=== PATIENT | male | born 1970 | race African-American/Black ===

== ENCOUNTER 2016-12-18 21:01 | Emergency (ER) | payer MEDICAID ==
[2016-12-18 21:11] VITALS: O2SAT 96
--- NOTE | 2016-12-18 21:20 | EDPHY ---
H & P Stated Complaint: Sudden onset groain pain Time Seen by Provider: 12/18/16 21:19 - Personal History Current Tetanus/Diphtheria Vaccine: Unsure Current Tetanus Diphtheria and Acellular Pertussis (TDAP): Unsure Tetanus Vaccine Date: 2005 - Medical/Surgical History Hx Asthma: No Hx Chronic Respiratory Disease: No Hx Diabetes: No Hx Cardiac Disease: No Hx Renal Disease: No Hx Cirrhosis: No Hx Alcoholism: No Hx HIV/AIDS: No Hx Splenectomy or Spleen Trauma: No Other PMH: L inguinal hernia.spiinal menigitis. - Social History Smoking Status: Former smoker Constitutional: Initial Vital Signs Temperature (C) 36.8 C 12/18/16 21:09 Heart Rate 89 12/18/16 21:09 Respiratory Rate 20 12/18/16 21:09 Blood Pressure 151/96 H 12/18/16 21:09 O2 Sat (%) 96 12/18/16 21:09 O2 Delivery Mode Room Air Allergies/Adverse Reactions: No Known Allergies Allergy (Verified 12/18/16 21:09) Home Medications: Medication Instructions Recorded Acetaminophen [Tylenol 325mg (*)] 650 mg PO Q4HRS PRN #0 tab 05/20/16 Cephalexin [Keflex (*)] 500 mg PO QID #40 cap 05/20/16 Doxycycline Hyclate 100 mg PO BID #20 capsule 05/20/16 Hydrocodone/APAP 5/325 [[place] 1 - 2 tab PO Q4 #11 tab 06/21/16 5/325 (RX)] Hydrocodone/APAP 5/325 [[place] 1 - 2 each PO Q4-6PRN PRN #20 tab 12/18/16 5/325] Ibuprofen [Motrin] 800 mg PO Q8 #20 tab 12/18/16 Medical Decision Making - Diagnostics Imaging Results: Imaging Impressions Testicular Ultrasound 12/18/16 21:29 Impression: 1. Normal sonographic appearance of each testis, with no mass or torsion. 2. Findings consistent with epididymitis involving each epididymal tail. 3. Stable appearance of a benign right scrotal mustapha, compared to 07/08/2016. 4. Tiny bilateral hydroceles. Findings were discussed with Horace Olguin MD at 22:19, on 12/18/2016. Imaging: Discussed imaging studies w/ call out operator Radiologist ED Course/Re-evaluation: CHIEF COMPLAINT: Testicular pain HISTORY OF PRESENT ILLNESS: The patient is a 46 y/o male complaining of acute onset left testicular pain one hour prior to arrival. The pain began abruptly as he was moving from one chair to another this evening. He describes his pain as sharp and 10/10 in severity continuously. His pain radiates to his LLQ and is associated with nausea and one episode of non-bloody vomiting. He tried Tylenol for pain without alleviation; however, he was able to relieve some pain by manually lifting his testicle towards his abdomen. No fever, chills, diarrhea , dysuria, urethral discharge. He notes one prior episode of similar symptoms 1 month ago. He denies preceding injury. REVIEW OF SYSTEMS: A 10 point review of systems was performed and is negative with the exception of the elements mentioned in the history of present illness. PHYSICAL EXAM: HR, BP, O2 Sat, RR. Temp noted General Appearance: Alert, well hydrated, appropriate, and non-toxic appearing. Head: Atraumatic without scalp tenderness or obvious injury Eyes: Pupils equal, round, reactive to light and accommodation, EOMI, no trauma , no injection. Nose: Atraumatic, no rhinorrhea, clear. Throat: mucus membranes moist. Neck: Supple Respiratory: No retractions, no distress, no wheezes, and no accessory muscle use. Lungs are clear to auscultation bilaterally. Cardiovascular: Regular rate and rhythm, no murmurs, rubs, or gallops. Good capillary refill all extremities. Gastrointestinal: Abdomen is soft, mild left-sided diffuse tenderness, non- distended, no masses, no rebound, no guarding, no peritoneal signs. : Mild tenderness to left testicle Musculoskeletal: Normal active ROM of all extremities, atraumatic. Neurological: Alert, appropriate, and interactive. Nonfocal neuro exam. Skin: No rashes, good turgor, no nodules on palpation. Past medical history: One prior episode of testicular pain 1 month ago. Unknown STD history. Past surgical history: Denies Family history: Noncontributory Social history: Homeless. Medicaid patient. Sexually active, unprotected sex. DIAGNOSTICS/PROCEDURES/CRITICAL CARE TIME: Testicular US: epididymitis DIFFERENTIAL DIAGNOSIS: The differential diagnosis for the patient's abdominal pain and testicular pain included but was not limited to appendicitis , cholecystitis, hernias, testicular torsion, gastritis, and urinary tract infection. MEDICAL DECISION MAKING: This is a 46 y/o male presenting with acute onset left testicular pain this evening. He has tenderness to his left testicle on exam. Concern for testicular torsion or epididymitis given recent unprotected sex. Plan for testicular US to further evaluate. US indicates epididymitis. The patient reports his pain is sometimes present in his right testicle, but not as severe. Plan for treatment here with 1gm IV Rocephin, 100mg PO Doxycycline, and 800mg PO ibuprofen. He will be discharged with script for Doxycycline and [place] scripts and ibuprofen instructions. Urology referral given. He agrees with plan. Strict return precautions given. [place] and ibuprofen Departure - Departure Disposition: Home, Routine, Self-Care Clinical Impression: Epididymitis Condition: Good Instructions: Doxycycline (By mouth), Hydrocodone/Acetaminophen (By mouth), Epididymitis (ED) Additional Instructions: 1. Take doxycycline as prescribed. Be sure to complete the entire prescription even if you feel better. 2. Take 800mg ibuprofen every 6-8 hours for pain and inflammation over the next few days. 3. Use [place] as prescribed if needed for pain not controlled by ibuprofen. 4. Follow up with urology tomorrow. 5. Return for any worsening of condition. Referrals: Toi Schmidt MD [Medical Doctor] - As per Instructions Prescriptions: Hydrocodone/APAP 5/325 [[place] 5/325] 1 - 2 each PO Q4-6PRN PRN #20 tab PRN Reason: Pain, Moderate Ibuprofen [Motrin] 800 mg PO Q8 #20 tab Report Scribed for: Horace Olguin Report Scribed by: Rohini Prather Date of Report: 12/18/16 Time of Report: 22:21
[2016-12-18] MEDS ORDERED: DOXYCYCLINE HYCLATE 100 MG CAP/TAB PO ONE (22:22)
[2016-12-18] MEDS ORDERED: IBUPROFEN 800 MG TAB PO ONE (22:22)
[2016-12-18] MEDS ORDERED: HYDROCOD/APAP 5/325 PREPACK#6 BTL TAKEHOME ONE (22:22)
[2016-12-18] MEDS ORDERED: CEFTRIAXONE IM 350 MG/ML SYRINGE IM ONE (22:22)
[2016-12-18] MEDS ORDERED: CEFTRIAXONE 1 GM/DEXTROSE/50 ML BAG IV ONE (22:26)
[2016-12-18] MEDS ORDERED: IBUPROFEN 200 MG TAB PO ONE (22:26)
[2016-12-18] MEDS: cefTRIAXone 1 GM in D5W 50 ML IV ONE ×2 (22:51→23:13)
[2016-12-18 23:42] VITALS: BP 139/66; PULSE 66; RESP 16; TEMP 98.1
== END 2016-12-18 23:45 | disposition home or self-care (01) ==
LOC: EDUNIT#
DX: N45.1 Epididymitis (principal); Z87.891 Personal history of nicotine dependence
CPT/HCPCS: J0696

== ENCOUNTER 2017-01-03 10:26 | Emergency (ER) | payer MEDICAID ==
[2017-01-03] MEDS ORDERED: LORazepam 1 MG TAB ONE ×2 (10:38)
--- NOTE | 2017-01-03 11:22 | EDPHY ---
H & P HPI/ROS: Chief complaint: Drug ingestion History of present illness: This is a 46-year-old male brought to the emergency department for evaluation of drug ingestion. Patient reports he took what he believes was ecstasy. However he is having abnormal reaction to a feeling very twitchy and anxious. He is concerned it was laced with another drug. He denies other associated signs or symptoms. Review of systems: A 10 point review of systems was obtained and other than described above was negative Smoking Status: Current every day smoker Physical Exam: General Appearance: Alert, nontoxic. Eyes: Pupils equal and round no pallor or injection. ENT, Mouth: Mucous membranes moist. Respiratory: There are no retractions, lungs are clear to auscultation. Cardiovascular: Regular rate and rhythm. Gastrointestinal: Abdomen is soft and non tender, no masses, bowel sounds normal. Neurological: Alert. Strength and sensation intact and symmetrical. Skin: Warm and dry, no rashes. Musculoskeletal: Neck is supple non tender. Extremities are symmetrical, full range of motion. Psychiatric: Appears very anxious. Constitutional: Initial Vital Signs Temperature (C) 37.3 C 01/03/17 10:31 Heart Rate 118 H 01/03/17 10:31 Respiratory Rate 16 01/03/17 10:31 Blood Pressure 141/84 H 01/03/17 10:31 O2 Sat (%) 94 01/03/17 10:31 O2 Delivery Mode Room Air O2 (L/minute) 2 Allergies/Adverse Reactions: No Known Allergies Allergy (Verified 12/18/16 21:09) Home Medications: Medication Instructions Recorded NK [No Known Home Meds] 01/03/17 MDM/Departure - [facility] ED Course/Re-evaluation: Patient seen under the supervision of my secondary supervising physician Dr. Gee Raza. Patient presents to the emergency department feeling twitchy and anxious after taking Ecstasy which he believed was laced with another drugs. Patient is nontoxic. He is given Ativan for symptomatic treatment and allowed to rest. On re-evaluation he is feeling well, ambulating around without difficulty. Patient is discharged home. Home care is discussed. Return precautions are given. - Depart Disposition: Home, Routine, Self-Care Clinical Impression: Polysubstance abuse Condition: Good Instructions: Polysubstance Abuse (ED) Additional Instructions: Follow-up with a primary care doctor for recheck Discontinue the use of illicit drugs If symptoms worsen or new symptoms develop return to the emergency room for recheck Referrals: Andree Sales, PAC [Primary Care Provider] - As per Instructions
[2017-01-03 13:05] VITALS: RESP 16
[2017-01-03 14:13] VITALS: BP 135/85; PULSE 80; TEMP 98.4; O2SAT 93
== END 2017-01-03 14:14 | disposition home or self-care (01) ==
LOC: EDUNIT#
DX: F19.10 Other psychoactive substance abuse, uncomplicated (principal); F17.200 Nicotine dependence, unspecified, uncomplicated

== ENCOUNTER 2017-03-05 10:46 | Emergency (ER) | payer MEDICAID ==
[2017-03-05 10:59] VITALS: TEMP 97.5
[2017-03-05] MEDS ORDERED: KETOROLAC 30 MG/1 ML SDV IVP ONE (11:33)
[2017-03-05] MEDS ORDERED: LORazepam 2 MG/ML INJ IVP ONE (11:33)
--- NOTE | 2017-03-05 11:35 | EDPHY ---
H & P Stated Complaint: ? hernia /l abd pain/increased pain today Time Seen by Provider: 03/05/17 11:21 HPI/ROS: CHIEF COMPLAINT: Left lower quadrant and left testicle pain HISTORY OF PRESENT ILLNESS: 46-year-old male history of polysubstance abuse, IV drug use, complaining of acute onset left testicle pain and left lower quadrant abdominal pain both reproducible with palpation for the past 1 hour. Atraumatic. No antecedent symptoms. No nausea or vomiting. No urinary abnormality. No urethral discharge. REVIEW OF SYSTEMS: A ten point review of systems was performed and is negative with the exception of the items mentioned in the HPI PAST MEDICAL & SURGICAL HISTORY: No pertinent medical or surgical history SOCIAL HISTORY: IV drug use history PHYSICAL EXAM (Prior to examination, patient consented to physical exam, hands were washed and my usual and customary physical exam procedures followed) 1) GENERAL: Well-developed, well-nourished, alert and oriented. He is screaming and crying. 2) HEAD: Normocephalic, atraumatic 3) HEENT: Pupils equal, round, reactive to light bilaterally. Sclera anicteric. 4) NECK: Full range of motion, no meningeal signs. 5) LUNGS: Clear auscultation bilaterally, no wheezes, no rhonchi, no retractions. 6) HEART: Regular rate and rhythm, no murmur, no heave, no gallop. 7) ABDOMEN: guarding left lower quadrant and left testicle, tender palpation left lower quadrant. No palpable mass, no hernia no rebound, no focal tenderness, negative McBurney's, negative More's, negative Rovsing's, negative peritoneal sign, 8) MUSCULOSKELETAL: Moving all extremities, no focal areas of tenderness, no obvious trauma. No peripheral edema or discoloration. 9) BACK: No CVA tenderness, no midline vertebral tenderness, no fluctuance, no step-off, no obvious trauma, no visual or palpable abnormality. 10) SKIN: No rash, no petechiae. 11) : Normal male external genitalia, tender to palpation left testicle with no high-riding testicle, no visible or palpable abnormality beyond pain. No evidence of Courtney's gangrene DIFFERENTIAL DIAGNOSIS: My differential diagnosis includes, but is not limited to, constipation, acute appendicitis, bowel obstruction, acute pancreatitis, testicular torsion, gastritis and urinary tract infection. The patient understands that this diagnosis is provisional and can never be 100% accurate. This is a partial list of diagnoses considered. These considerations are based on history, physical exam, past history and reassessment. - Personal History Current Tetanus/Diphtheria Vaccine: Yes Tetanus Vaccine Date: 2005 - Medical/Surgical History Hx Asthma: No Hx Chronic Respiratory Disease: No Hx Diabetes: No Hx Cardiac Disease: No Hx Renal Disease: No Hx Cirrhosis: No Hx Alcoholism: No Hx HIV/AIDS: No Hx Splenectomy or Spleen Trauma: No Other PMH: L inguinal hernia.spiinal menigitis. DRUG ABUSE - Social History Smoking Status: Current every day smoker Constitutional: Initial Vital Signs Temperature (C) 36.4 C 03/05/17 10:57 Heart Rate 67 03/05/17 10:57 Respiratory Rate 18 03/05/17 10:57 Blood Pressure 213/122 H 03/05/17 10:57 O2 Sat (%) 100 03/05/17 10:57 O2 Delivery Mode Room Air Allergies/Adverse Reactions: No Known Allergies Allergy (Verified 03/05/17 10:57) Home Medications: Medication Instructions Recorded Peg 3350/Na Sulf,Bicarb,Cl/KCl 1,000 ml PO ONCE #4000 ml 03/05/17 [Golytely (RX)] Medical Decision Making - Diagnostics Imaging Results: Imaging Impressions Testicular Ultrasound 03/05/17 11:31 Impression: 1. Small bilateral hydroceles. 2. No testicular torsion. 3. No intratesticular masses. 4. Stable right scrotal mustapha measuring 1 cm. 5. Possible asymmetrically, mildly increased flow to left testis which may represent left orchitis or epididymitis without abscess or focal fluid collection. Findings discussed with Emergency Department physician's front desk assistant, Ike Corbett at 1227 hours, 03/05/2017. Final report concurs with initial preliminary interpretation. Abdomen CT 03/05/17 11:33 Impression: 1. Constipation. 2. Otherwise normal CT abdomen and pelvis. 3. No CT evidence of appendicitis, diverticulitis, abscess, or bowel obstruction. Findings discussed with Emergency Department physician's front desk assistant, Ike Corbett, at 1344 hours, 03/05/2017. Final report concurs with initial preliminary interpretation. Images reviewed by myself ED Course/Re-evaluation: 2:30 p.m.: Re-evaluation with serial examinations, discussed his imaging results showing constipation no evidence of diverticulitis, no evidence of perforation, abscess, no evidence of testicular torsion or definitive epididymitis. At this time he is sleeping, appears comfortable. I do not think that further diagnostic studies currently indicated from the emergency department, did not think that general surgery consultation emergently indicated or admission. Plan will be discharge with medication for constipation and usual and customary abdominal precautions instructions. - Data Points Laboratory Results: Laboratory Results 03/05/17 11:40 03/05/17 11:40 03/05/17 03/05/17 03/05/17 14:40 11:40 11:40 WBC 6.78 10^3/uL 10^3/uL (3.80-9.50) RBC 4.82 10^6/uL 10^6/uL (4.40-6.38) Hgb 15.1 g/dL g/dL (13.7-17.5) Hct 44.0 % % (40.0-51.0) MCV 91.3 fL fL (81.5-99.8) MCH 31.3 pg pg (27.9-34.1) MCHC 34.3 g/dL g/dL (32.4-36.7) RDW 12.5 % % (11.5-15.2) Plt Count 241 10^3/uL 10^3/uL (150-400) MPV 9.6 fL fL (8.7-11.7) Neut % (Auto) 39.9 % % (39.3-74.2) Lymph % (Auto) 37.3 % % (15.0-45.0) [place] % (Auto) 6.6 % % (4.5-13.0) Eos % (Auto) 14.6 % H % (0.6-7.6) Baso % (Auto) 1.5 % % (0.3-1.7) Nucleat RBC Rel Count 0.0 % % (0.0-0.2) Absolute Neuts (auto) 2.70 10^3/uL 10^3/uL (1.70-6.50) Absolute Lymphs (auto) 2.53 10^3/uL 10^3/uL (1.00-3.00) Absolute Monos (auto) 0.45 10^3/uL 10^3/uL (0.30-0.80) Absolute Eos (auto) 0.99 10^3/uL H 10^3/uL (0.03-0.40) Absolute Basos (auto) 0.10 10^3/uL 10^3/uL (0.02-0.10) Absolute Nucleated RBC 0.00 10^3/uL 10^3/uL (0-0.01) Immature Gran % 0.1 % % (0.0-1.1) Immature Gran # 0.01 10^3/uL 10^3/uL (0.00-0.10) Sodium 141 mEq/L mEq/L (134-144) Potassium 4.3 mEq/L mEq/L (3.5-5.2) Chloride 107 mEq/L mEq/L (97-110) Carbon Dioxide 22 mEq/l mEq/l (22-31) Anion Gap 12 mEq/L mEq/L (8-16) BUN 12 mg/dL mg/dL (7-23) Creatinine 1.0 mg/dL mg/dL (0.7-1.3) Estimated GFR > 60 Glucose 84 mg/dL mg/dL (70-100) Calcium 10.0 mg/dL mg/dL (8.5-10.4) Urine Color Pending Urine Appearance Pending Urine pH Pending Ur Specific [place] Pending Urine Protein Pending Urine Ketones Pending Urine Blood Pending Urine Nitrate Pending Urine Bilirubin Pending Urine Urobilinogen Pending Ur Leukocyte Esterase Pending Urine RBC Pending Urine WBC Pending Ur Epithelial Cells Pending Urine Glucose Pending Medications Given: Discontinued Medications Sodium Chloride (Ns) 1,000 mls @ 0 mls/hr IV ONCE ONE PRN Reason: Wide Open Stop: 03/05/17 14:08 Last Admin: 03/05/17 14:09 Dose: 1,000 mls Ketorolac Tromethamine (Toradol) 30 mg IVP EDNOW ONE Stop: 03/05/17 11:34 Last Admin: 03/05/17 11:55 Dose: 30 mg Lorazepam (Ativan Injection) 1 mg IVP EDNOW ONE Stop: 03/05/17 11:34 Last Admin: 03/05/17 11:55 Dose: 1 mg Departure - Departure Disposition: Home, Routine, Self-Care Clinical Impression: Constipation Qualifiers: Constipation type: unspecified constipation type Qualified Code(s): K59.00 - Constipation, unspecified Condition: Good Instructions: Constipation (ED), High Fiber Diet (ED) Additional Instructions: Seek immediate medical attention if you develop new or worsening symptoms, if you develop fevers, chills, inability to tolerate oral intake or any other symptoms that concerns you. Referrals: [facility],. [Clinic] - 1 day without fail Prescriptions: Peg 3350/Na Sulf,Bicarb,Cl/KCl [Golytely (RX)] 1,000 ml PO ONCE #4000 ml
[2017-03-05 11:51] LABS: % IMMATURE GRANULYOCYTES 0.1 % (0.0-1.1); ABSOLUTE IMMATURE GRANULOCYTES 0.01 10^3/uL (0.00-0.10); ADD DIFF? NO; ADD MORPH? NO; ADD SCAN? NO; ATYPICAL LYMPHOCYTE FLAG 0 (0-99); FRAGMENT RBC FLAG 0 (0-99); HEMOGLOBIN 15.1 g/dL (13.7-17.5); LEFT SHIFT FLG 0 (0-99); LIPEMIA HEMOLYSIS FLAG 90 (0-99); MEAN CELL HEMOGLOBIN 31.3 pg (27.9-34.1); MEAN CELL HEMOGLOBIN CONCENTR. 34.3 g/dL (32.4-36.7); MEAN CELL VOLUME 91.3 fL (81.5-99.8); MEAN PLATELET VOLUME 9.6 fL (8.7-11.7); PLATELET CLUMPS FLAG 10 (0-99); PLATELET COUNT 241 10^3/uL (150-400); RED BLOOD CELL COUNT 4.82 10^6/uL (4.40-6.38); RED CELL DISTRIBUTION WIDTH 12.5 % (11.5-15.2)
[2017-03-05 12:35] LABS: ANION GAP 12 mEq/L (8-16); CARBON DIOXIDE 22 mEq/l (22-31); CHLORIDE 107 mEq/L (97-110); GLOMERULAR FILTRATION RATE > 60; GLUCOSE 84 mg/dL (70-100); POTASSIUM 4.3 mEq/L (3.5-5.2); SODIUM 141 mEq/L (134-144)
[2017-03-05 12:37] VITALS: RESP 16
[2017-03-05] MEDS ORDERED: IOPAMIDOL (ISOVUE-300) 100 ML BTL ONE (12:53)
[2017-03-05] MEDS ORDERED: NS 1,000 ML IV ONE (14:07)
[2017-03-05 15:13] VITALS: BP 165/118; PULSE 79; O2SAT 94
== END 2017-03-05 15:20 | disposition home or self-care (01) ==
DX: K59.00 Constipation, unspecified (principal); F17.200 Nicotine dependence, unspecified, uncomplicated
CPT/HCPCS: 96374; J1885; J2060; Q9967

== ENCOUNTER 2017-05-06 12:49 | Emergency (ER) | payer MEDICAID ==
[2017-05-06] MEDS ORDERED: HYDROmorphONE/DILAUDID 1 MG/ML INJ IVP ONE (12:54)
[2017-05-06] MEDS ORDERED: ONDANSETRON 4 MG/2 ML VIAL IVP ONE (12:54)
[2017-05-06] MEDS ORDERED: NS 1,000 ML IV ONE ×2 (12:54→13:02)
[2017-05-06 13:00] VITALS: RESP 16
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
[2017-05-06] MEDS ORDERED: IOPAMIDOL (ISOVUE-300) 100 ML BTL ONE (13:21)
[2017-05-06 13:52] LABS: % IMMATURE GRANULYOCYTES 0.5 % (0.0-1.1); ABSOLUTE IMMATURE GRANULOCYTES 0.05 10^3/uL (0.00-0.10); ADD DIFF? NO; ADD MORPH? NO; ADD SCAN? NO; ATYPICAL LYMPHOCYTE FLAG 10 (0-99); FRAGMENT RBC FLAG 0 (0-99); HEMATOCRIT 42.5 % (40.0-51.0); HEMOGLOBIN 14.8 g/dL (13.7-17.5); LEFT SHIFT FLG 0 (0-99); LIPEMIA HEMOLYSIS FLAG 90 (0-99); MEAN CELL HEMOGLOBIN 31.9 pg (27.9-34.1); MEAN CELL HEMOGLOBIN CONCENTR. 34.8 g/dL (32.4-36.7); MEAN CELL VOLUME 91.6 fL (81.5-99.8); MEAN PLATELET VOLUME 9.3 fL (8.7-11.7); PLATELET CLUMPS FLAG 0 (0-99); PLATELET COUNT 235 10^3/uL (150-400); RED BLOOD CELL COUNT 4.64 10^6/uL (4.40-6.38); RED CELL DISTRIBUTION WIDTH 13.1 % (11.5-15.2)
[2017-05-06 14:02] LABS: ANION GAP 10 mEq/L (8-16); CALCIUM 9.4 mg/dL (8.5-10.4); CARBON DIOXIDE 24 mEq/l (22-31); CHLORIDE 105 mEq/L (97-110); CREATININE 1.1 mg/dL (0.7-1.3); ETHANOL SERUM < 10 mg/dL (0-10); GLOMERULAR FILTRATION RATE > 60; GLUCOSE 114 mg/dL (70-100); POTASSIUM 3.7 mEq/L (3.5-5.2); SODIUM 139 mEq/L (134-144)
[2017-05-06 14:03] LABS: INR 1.08 (0.83-1.16); PROTIME(PATIENT) 13.9 SEC (12.0-15.0)
[2017-05-06 14:04] LABS: APTT 27.1 SEC (23.0-38.0)
[2017-05-06 16:00] VITALS: BP 152/94; PULSE 93; TEMP 98.1; O2SAT 93
== END 2017-05-06 16:05 | disposition home or self-care (01) ==
LOC: EDUNIT#
DX: S00.81XA Abrasion of other part of head, initial encounter (principal); E86.9 Volume depletion, unspecified; F17.200 Nicotine dependence, unspecified, uncomplicated; V14.4XXA Pedal cycle driver injured in collision with heavy transport vehicle or bus in traffic accident, initial encounter; Y92.410 Unspecified street and highway as the place of occurrence of the external cause; Y99.8 Other external cause status; Y93.55 Activity, bike riding
CPT/HCPCS: 96374; G0480; J1170; J2405; Q9967

== ENCOUNTER 2017-08-19 18:45 | Emergency (ER) | payer MEDICAID ==
--- NOTE | 2017-08-19 19:30 | EDPHY ---
H & P Time Seen by Provider: 08/19/17 18:48 HPI/ROS: CHIEF COMPLAINT: Left groin pain HISTORY OF PRESENT ILLNESS: 46-year-old male presents to the emergency department by ambulance complaining of severe left-sided groin pain. Patient has a history of a "hernia ". The patient has had intermittent pain typically once a month for the last 3 years. The patient has been diagnosed with inguinal hernia in the past and has been referred to general surgeon, however has been noncompliant. He states the pain began abruptly at 4:30 p.m. this afternoon. No urinary symptoms. Denies any other abdominal pain. No vomiting. No back pain. No reported trauma. No chest pain or difficulty breathing. REVIEW OF SYSTEMS: Constitutional: No fever, no chills. Eyes: No double or blurry vision. ENT: No sore throat. Respiratory: No cough, no shortness of breath. Cardiac: No chest pain. Gastrointestinal: As above. No vomiting or diarrhea Genitourinary: No dysuria. Musculoskeletal: No neck or back pain. Skin: No rashes. Neurological: No headache. Past Medical/Surgical History: Hypertension, noncompliant with medication for years Social History: Homeless Smoking Status: Current every day smoker Physical Exam: General Appearance: Lethargic Tearful Eyes: Pupils equal and round. Extraocular motions are all intact. ENT: Mouth: Mucous membranes moist. Respiratory: No wheezing, rhonchi, or rales, lungs are clear to auscultation. Cardiovascular: Regular rate and rhythm. Gastrointestinal: Abdomen is soft and nontender, no masses, no rebound or guarding, bowel sounds normal. Genitourinary: Performed with girlfriend at bedside. Circumcised penis. Patient has reproducible pain with palpation in the left inguinal canal. No palpable bulge. Exam is very limited given his pain. Neurological: Alert and oriented x 3, cranial nerves II through XII grossly intact Skin: Warm and dry, no rashes. Musculoskeletal: Nontender to palpate along the cervical, thoracic or lumbar spine. Neck is supple. Extremities: Full range of motion and no peripheral edema. Psychiatric: Patient is oriented X 3, there is no agitation. Constitutional: Initial Vital Signs Temperature (C) 36.4 C 08/19/17 18:50 Heart Rate 78 08/19/17 18:50 Respiratory Rate 18 08/19/17 18:50 Blood Pressure 177/118 H 08/19/17 18:50 O2 Sat (%) 99 08/19/17 18:50 O2 Delivery Mode Room Air Allergies/Adverse Reactions: No Known Allergies Allergy (Verified 03/05/17 10:57) Home Medications: Medication Instructions Recorded NK [No Known Home Meds] 08/19/17 Medical Decision Making - Diagnostics Imaging Results: Imaging Impressions Abdomen Ultrasound 08/19/17 19:30 Impression: Direct left inguinal hernia containing incompletely-reducible omental fat, corresponding to the area of discomfort. Findings were discussed with PAULINO AVILA PA-C at 20:40, on 08/19/2017. Testicular Ultrasound 08/19/17 21:30 Impression: 1. Normal sonographic appearance of each testis, with no mass or torsion. 2. Small bilateral hydroceles. 3. Stable appearance of a round "scrotal mustapha" inferolateral and distinct from the right testis, unchanged from 03/05/2017. Findings were discussed with ORI COELHO MD at 22:24, on 08/19/2017. ED Course/Re-evaluation: 46-year-old male presents to the emergency department with abdominal pain, specifically left groin pain. He feels that his "hernias acting up ". Limited abdominal ultrasound reveals left inguinal hernia with some herniated fat. No evidence of incarcerated bowel. I discussed the case with Dr. Esau Hernandez who is on-call for General surgery who evaluated the patient as well as to evaluate the patient CT scan. Dr. Hernandez was concerned about possible epididymitis. Testicular ultrasound was ordered which was unremarkable. No evidence of epididymitis. Patient was given urology referral. Also give him referral to general surgeon as he has had intermittent pain associated with this hernia for several years. Instructed to return to the emergency department if he develops worsening abdominal pain, vomiting, fever, or any other concerns. Differential Diagnosis: Including but not limited to hernia, testicular torsion, epididymitis, urinary tract infection, pyelonephritis, kidney stone - Data Points Laboratory Results: Laboratory Results 08/19/17 19:50 08/19/17 19:50 08/19/17 08/19/17 08/19/17 23:15 19:50 19:50 WBC 12.31 10^3/uL H 10^3/uL (3.80-9.50) RBC 4.89 10^6/uL 10^6/uL (4.40-6.38) Hgb 15.6 g/dL g/dL (13.7-17.5) Hct 45.5 % % (40.0-51.0) MCV 93.0 fL fL (81.5-99.8) MCH 31.9 pg pg (27.9-34.1) MCHC 34.3 g/dL g/dL (32.4-36.7) RDW 12.5 % % (11.5-15.2) Plt Count 269 10^3/uL 10^3/uL (150-400) MPV 9.5 fL fL (8.7-11.7) Neut % (Auto) 78.8 % H % (39.3-74.2) Lymph % (Auto) 12.4 % L % (15.0-45.0) [place] % (Auto) 4.1 % L % (4.5-13.0) Eos % (Auto) 3.9 % % (0.6-7.6) Baso % (Auto) 0.6 % % (0.3-1.7) Nucleat RBC Rel Count 0.0 % % (0.0-0.2) Absolute Neuts (auto) 9.69 10^3/uL H 10^3/uL (1.70-6.50) Absolute Lymphs (auto) 1.53 10^3/uL 10^3/uL (1.00-3.00) Absolute Monos (auto) 0.51 10^3/uL 10^3/uL (0.30-0.80) Absolute Eos (auto) 0.48 10^3/uL H 10^3/uL (0.03-0.40) Absolute Basos (auto) 0.07 10^3/uL 10^3/uL (0.02-0.10) Absolute Nucleated RBC 0.00 10^3/uL 10^3/uL (0-0.01) Immature Gran % 0.2 % % (0.0-1.1) Immature Gran # 0.03 10^3/uL 10^3/uL (0.00-0.10) Sodium 140 mEq/L mEq/L (135-145) Potassium 4.5 mEq/L mEq/L (3.5-5.2) Chloride 107 mEq/L mEq/L (97-110) Carbon Dioxide 24 mEq/l mEq/l (22-31) Anion Gap 9 mEq/L mEq/L (8-16) BUN 11 mg/dL mg/dL (7-23) Creatinine 0.8 mg/dL mg/dL (0.7-1.3) Estimated GFR > 60 Glucose 136 mg/dL H mg/dL (70-100) Calcium 9.6 mg/dL mg/dL (8.5-10.4) Urine Color YELLOW Urine Appearance CLEAR Urine pH 6.0 (5.0-7.5) Ur Specific [place] 1.018 (1.002-1.030) Urine Protein NEGATIVE (NEGATIVE) Urine Ketones NEGATIVE (NEGATIVE) Urine Blood NEGATIVE (NEGATIVE) Urine Nitrate NEGATIVE (NEGATIVE) Urine Bilirubin NEGATIVE (NEGATIVE) Urine Urobilinogen NEGATIVE EU EU (0.2-1.0) Ur Leukocyte Esterase NEGATIVE (NEGATIVE) Urine RBC 1-3 /hpf /hpf (0-3) Urine WBC 1-3 /hpf /hpf (0-3) Ur Epithelial Cells Not Reported Urine Mucus TRACE /lpf /lpf (NONE-1+) Urine Glucose NEGATIVE (NEGATIVE) Departure - Departure Disposition: Home, Routine, Self-Care Clinical Impression: Abdominal pain Qualifiers: Abdominal location: left lower quadrant Qualified Code(s): R10.32 - Left lower quadrant pain Inguinal hernia Qualifiers: Obstruction and gangrene presence: without obstruction or gangrene Laterality: unilateral Recurrence: recurrent Qualified Code(s): K40.91 - Unilateral inguinal hernia, without obstruction or gangrene, recurrent Condition: Good Instructions: Inguinal Hernia (ED), Acute Abdominal Pain (ED) Additional Instructions: You should follow up with urologist regarding your intermittent testicular pain. You should see your primary care provider for follow-up as well as general surgeon to discuss inguinal hernia. There is no evidence of incarcerated inguinal hernia on ultrasound today. Return to the emergency department if you developed recurring or worsening pain , difficulty with urination, or if you feel worse in any way. Referrals: Grabiel Lawrence MD [Medical Doctor] - As per Instructions (General surgeon) Toi Sanders MD [Medical Doctor] - As per Instructions (Urologist on-call)
[2017-08-19 20:03] LABS: PLATELET COUNT 269 10^3/uL (150-400)
[2017-08-19 21:25] VITALS: O2SAT 96
[2017-08-19 23:45] VITALS: BP 138/73; PULSE 77; RESP 16; TEMP 98.2
== END 2017-08-19 23:45 | disposition home or self-care (01) ==
LOC: EDUNIT#
DX: K40.91 Unilateral inguinal hernia, without obstruction or gangrene, recurrent (principal); I10 Essential (primary) hypertension; F17.200 Nicotine dependence, unspecified, uncomplicated

== ENCOUNTER 2017-09-28 08:17 | Emergency (ER) | payer MEDICAID ==
[2017-09-28 08:27] VITALS: RESP 18; O2SAT 96
--- NOTE | 2017-09-28 08:30 | EDPHY ---
H & P Stated Complaint: groin pain Time Seen by Provider: 09/28/17 08:24 HPI/ROS: CHIEF COMPLAINT: Hernia pain HISTORY OF PRESENT ILLNESS: The patient presents to the ED via ambulance with complaints of hernia pain. The patient has been seen in the ED several times in the past for this condition. He has a chronic left inguinal hernia which has never exhibited significant incarceration or strangulation. In the emergency department, the patient complains of moderate left inguinal pain. He denies vomiting, diarrhea or additional acute complaints. Patient does have a history of hypertension but takes no medications for this condition. REVIEW OF SYSTEMS: A comprehensive 10 point review of systems is otherwise negative aside from elements mentioned in the history of present illness. Source: Patient, EMS - Personal History Current Tetanus/Diphtheria Vaccine: Yes Current Tetanus Diphtheria and Acellular Pertussis (TDAP): Yes Tetanus Vaccine Date: 2005 - Medical/Surgical History Hx Asthma: No Hx Chronic Respiratory Disease: No Hx Diabetes: No Hx Cardiac Disease: No Hx Renal Disease: No Hx Cirrhosis: No Hx Alcoholism: No Hx HIV/AIDS: No Hx Splenectomy or Spleen Trauma: No Other PMH: L inguinal hernia.spiinal menigitis. DRUG ABUSE, HTN - Social History Smoking Status: Current every day smoker - Physical Exam Exam: General Appearance: Alert, no distress Eyes: Pupils equal and round no pallor or injection ENT, Mouth: Mucous membranes moist Respiratory: There are no retractions, lungs are clear to auscultation Cardiovascular: Regular rate and rhythm Gastrointestinal: Tenderness to palpation in the left inguinal area, palpable hernia without evidence of incarceration or strangulation Neurological: Grossly normal motor exam Skin: Warm and dry, no rashes Musculoskeletal: Neck is supple nontender Extremities: symmetrical, full range of motion Constitutional: Initial Vital Signs Temperature (C) 36.7 C 09/28/17 08:24 Heart Rate 89 09/28/17 08:24 Respiratory Rate 18 09/28/17 08:24 Blood Pressure 187/120 H 09/28/17 08:24 O2 Sat (%) 96 09/28/17 08:24 O2 Delivery Mode Room Air Allergies/Adverse Reactions: No Known Allergies Allergy (Verified 03/05/17 10:57) Home Medications: Medication Instructions Recorded NK [No Known Home Meds] 08/19/17 Medical Decision Making ED Course/Re-evaluation: The patient has evidence of a ongoing left inguinal hernia which is not incarcerated or strangulated. The patient will be advised to take Tylenol and ibuprofen for pain. The patient will be referred to our on-call general surgeon for further evaluation and management. Departure - Departure Disposition: Home, Routine, Self-Care Clinical Impression: Inguinal hernia Qualifiers: Obstruction and gangrene presence: without obstruction or gangrene Laterality: unilateral Recurrence: recurrent Qualified Code(s): K40.91 - Unilateral inguinal hernia, without obstruction or gangrene, recurrent Condition: Good Instructions: Inguinal Hernia (ED) Additional Instructions: 1. Tylenol and ibuprofen as needed for pain. 2. Please schedule a follow-up appointment with Dr. Barajas from General surgery. He will evaluate your hernia and tell you options for treatment. Referrals: Owen Barajas MD [Medical Doctor] - As per Instructions
[2017-09-28] MEDS ORDERED: IBUPROFEN 600 MG TAB PO ONE (08:44)
[2017-09-28 08:57] VITALS: BP 187/92; PULSE 84; TEMP 98.4
== END 2017-09-28 08:52 | disposition home or self-care (01) ==
LOC: EDUNIT#
DX: K40.91 Unilateral inguinal hernia, without obstruction or gangrene, recurrent (principal); I10 Essential (primary) hypertension; F17.200 Nicotine dependence, unspecified, uncomplicated

== ENCOUNTER 2017-10-19 11:50 | Emergency (ER) | payer MEDICAID ==
--- NOTE | 2017-10-19 12:51 | EDPHY ---
H & P Time Seen by Provider: 10/19/17 12:46 HPI/ROS: CHIEF COMPLAINT: Left groin pain HISTORY OF PRESENT ILLNESS: Patient says he has had symptoms intermittently for the last 2 years, increasing over the last 2 months. His chart was reviewed and he had an ultrasound here dated 08/19/2017 which showed inguinal hernia on the left side. Patient says he saw surgeon not connected with this facility when he was asymptomatic and was told he did not have a hernia at that time. That surgeon did not have access to our computer records. He says the symptoms are intermittent, associated with pain in the left groin radiate into his scrotum without testicular symptoms or urinary symptoms or discharge. Radiates up into his abdomen. Not associated with vomiting or fever or other skin changes. REVIEW OF SYSTEMS: No vomiting fever PAST MEDICAL HISTORY: Includes meningitis, hypertension Social history: Tobacco smoker General Appearance: Alert and conversant, cooperative. Abdomen soft and nontender. No rebound or guarding. Skin is normal. Testicles are not swollen or tender, no masses palpated. No inguinal masses. Normal femoral pulses. Emergency Department course/MDM: Ultrasound of the abdomen dated 08/19/2017 personally reviewed with the patient on the computer system. Shows direct left inguinal hernia with incompletely reducible omental fat. This was reviewed with the patient on the computer system. His symptoms are likely due to a left inguinal hernia. Case management saw him to facilitate follow-up with 1 of our surgeons. He declined pain medication. I do not think it is likely that he has testicular torsion, incarcerated or strangulated hernia, testicular mass, acute surgical abdominal process. Smoking Status: Current every day smoker Constitutional: Initial Vital Signs Temperature (C) 36.6 C 10/19/17 11:51 Heart Rate 78 10/19/17 11:51 Respiratory Rate 20 10/19/17 11:51 Blood Pressure 186/123 H 10/19/17 11:51 O2 Sat (%) 100 10/19/17 11:51 O2 Delivery Mode Room Air Allergies/Adverse Reactions: No Known Allergies Allergy (Verified 03/05/17 10:57) Home Medications: Medication Instructions Recorded NK [No Known Home Meds] 08/19/17 Departure - Departure Disposition: Home, Routine, Self-Care Clinical Impression: Inguinal hernia Qualifiers: Obstruction and gangrene presence: without obstruction or gangrene Laterality: unilateral Recurrence: recurrent Qualified Code(s): K40.91 - Unilateral inguinal hernia, without obstruction or gangrene, recurrent Condition: Good Instructions: Inguinal Hernia (ED) Referrals: Andree Sales PAC [Primary Care Provider] - As per Instructions Moy James MD [Medical Doctor] - As per Instructions
[2017-10-19 13:20] VITALS: BP 148/85; PULSE 81; RESP 16; TEMP 98.6; O2SAT 97
--- NOTE | 2017-10-19 14:48 | ASMTCMCOM ---
CM Note CM Note Notes: Requested to speak to patient regarding follow-up with [facility] (he is seen by Andree Sales), and with the on-call General Surgeon, Andry James, for his hernia (he was diagnosed in the ED 08/19/17 and seen again 09/28/17 for similar ongoing symptoms). This CM called Dr James Office ([phone]) and spoke with Tiffanie who states they are able to see reports and imaging from [facility] ED visits and so a fax referral didn't need to be sent. Patient and his fiance, Liza, at bedside, states they will call Dr James office and make a follow-up appt and will also call [facility] to follow up with Andree Sales. CM available for further assistance if needed. Date Signed: 10/19/2017 02:47 PM Electronically Signed By:Barbara Moreau RN
--- NOTE | 2017-10-19 14:51 | ASDISCHSUM ---
Discharge Information Plan Status:Home with No Needs Medically Cleared to Leave: Discharge Date:10/19/2017 01:21 PM CM D/C Disposition:Home, Routine, Self-Care ADT D/C Disposition:Home, Routine, Self-Care Projected Discharge Date:10/19/2017 01:21 PM Transportation at D/C:None or Unknown Discharge Delay Reason: Follow-Up Date:10/19/2017 01:21 PM Discharge Slot: Final Diagnosis: Placement Information Patient Contact Information Contact Name:MARY Relationship:Other Address: Work Phone: City:[place] Alternate Phone: State/Zip Code:[place] Email: Financial Information Financial Class:Medicaid Primary Plan Desc:[employer] Primary Plan Number:[id number] Secondary Plan Desc: Secondary Plan Number: Assessment Information [facility] CM Progress Note CM Note CM Note Notes: Requested to speak to patient regarding follow-up with [facility] (he is seen by Andree Sales), and with the on-call General Surgeon, Andry James, for his hernia (he was diagnosed in the ED 08/19/17 and seen again 09/28/17 for similar ongoing symptoms). This CM called Dr James Office ([phone]) and spoke with Tiffanie who states they are able to see reports and imaging from [facility] ED visits and so a fax referral didn't need to be sent. Patient and his fiance, Liza, at bedside, states they will call Dr James office and make a follow-up appt and will also call [facility] to follow up with Andree Sales. CM available for further assistance if needed. Date Signed: 10/19/2017 02:47 PM Electronically Signed By:Barbara Moreau RN LACE LACE Acuity / Level of Answers: No Care: Did the patient have an inpatient admission? # of Emergency department Answers: 3-4 visits in the last 6 months Score: 3 Date Signed: 10/19/2017 02:49 PM Electronically Signed By:Barbara Moreau RN Intervention Information Intervention Type:Health Clinic Date of Service:10/19/2017 02:49 PM Patient Type:Emergency Room Staff Member:DEVYN Moreau, Barbara Hours:0.25 Discipline:Dye [employer]oth Severity: Comment:
== END 2017-10-19 13:21 | disposition home or self-care (01) ==
DX: K40.91 Unilateral inguinal hernia, without obstruction or gangrene, recurrent (principal); I10 Essential (primary) hypertension; F17.200 Nicotine dependence, unspecified, uncomplicated

== ENCOUNTER 2017-11-30 15:50 | Emergency (ER) | payer MEDICAID ==
[2017-11-30] MEDS ORDERED: METOCLOPRAMIDE 10 MG/2 ML VIAL IVP ONE (16:11)
[2017-11-30] MEDS ORDERED: KETAMINE 500 MG/10 ML VIAL NASAL ONE (16:11)
--- NOTE | 2017-11-30 16:14 | EDPHY ---
H & P Stated Complaint: L groin pain Time Seen by Provider: 11/30/17 15:50 HPI/ROS: CHIEF COMPLAINT: Left testicular pain HISTORY OF PRESENT ILLNESS: 47-year-old male presents with left testicular pain. Onset of severe left testicular pain approximately 1 hr ago. The pain is constant and severe, associated with diaphoresis and nausea. Feels somewhat similar to prior episodes of left groin pain, thought secondary to inguinal hernia. The pain radiates to the left side of his abdomen. No urethral discharge, fever or chills REVIEW OF SYSTEMS: complete 10 point ROS negative except at noted in the HPI - Personal History Tetanus Vaccine Date: 2005 - Medical/Surgical History Hx Asthma: No Hx Chronic Respiratory Disease: No Hx Diabetes: Yes Hx Cardiac Disease: No Hx Renal Disease: No Hx Cirrhosis: No Hx Alcoholism: No Hx HIV/AIDS: No Hx Splenectomy or Spleen Trauma: No Other PMH: L inguinal hernia. Spinal menigitis. DRUG ABUSE, HTN - Social History Smoking Status: Current every day smoker - Physical Exam Exam: General Appearance: Alert, appears in pain, diaphoretic Eyes: Pupils equal and round, no conjunctival pallor ENT, Mouth: Mucous membranes moist Neck: Normal inspection Respiratory: Lungs are clear to auscultation Cardiovascular: Regular rate and rhythm Gastrointestinal: Abdomen is soft, left lower quadrant tenderness Genitourinary: Left testicular tenderness, left groin tenderness without swelling Neurological: A&O, nonfocal exam Skin: Warm and diaphoretic Extremities: Normal inspection Psychiatric: Mood and affect normal Constitutional: Initial Vital Signs Temperature (C) 36.3 C 11/30/17 15:57 Heart Rate 77 11/30/17 15:57 Respiratory Rate 16 11/30/17 15:57 Blood Pressure 186/121 H 11/30/17 15:57 O2 Sat (%) 98 11/30/17 15:57 O2 Delivery Mode Room Air Allergies/Adverse Reactions: No Known Allergies Allergy (Verified 03/05/17 10:57) Home Medications: Medication Instructions Recorded NK [No Known Home Meds] 08/19/17 Medical Decision Making - Diagnostics Imaging Results: Imaging Impressions Testicular Ultrasound 11/30/17 16:09 Impression: 1. No acute abnormality. Specifically, no torsion. 2. Right scrotal mustapha, similar to prior. 3. Small right, trace left hydroceles, similar to prior. Dr. Marsala discussed these findings by telephone with MARISELA MARKS at 1727 hours on 11/30/2017. ED Course/Re-evaluation: This patient presents with left testicular pain diaphoresis, concerning for testicular torsion. Old medical records reviewed and reveal prior normal testicular ultrasound. However, given the exquisite nature of the tenderness and diaphoresis, repeat testicular ultrasound was ordered. Intranasal ketamine and Reglan/Benadryl IV given. 1730: Ultrasound results discussed with the patient. The pain has completely resolved. He feels slightly dizzy so I will continue to observe him. 1900: feels better, continues to have vertigo 2100: feels better, no pain or vertigo, able to walk with a steady gait. Unclear etiology of pain. Testicular ultrasound is normal. There is no palpable hernia on exam, though the patient is convinced that he has a hernia that is causing his pain. Abdomen is soft and nontender on discharge. I considered renal colic as etiology for his pain, but since the pain has resolved , I did not proceed with CT of the abdomen and pelvis. He has had prior CT scans that have been unremarkable. I have encouraged him to follow up with his primary care physician. He also requests the contact information for Dr. Lawrence. Differential Diagnosis: Differential diagnosis includes though it is not limited to testicular torsion, epididymitis, renal colic, appendicitis, cholecystitis, diverticulitis, pyelonephritis, bowel perforation, small bowel obstruction. - Data Points Laboratory Results: Laboratory Results 11/30/17 14:37 11/30/17 14:37 11/30/17 11/30/17 11/30/17 18:20 14:37 14:37 WBC 7.08 10^3/uL 10^3/uL (3.80-9.50) RBC 5.43 10^6/uL 10^6/uL (4.40-6.38) Hgb 16.8 g/dL g/dL (13.7-17.5) Hct 50.0 % % (40.0-51.0) MCV 92.1 fL fL (81.5-99.8) MCH 30.9 pg pg (27.9-34.1) MCHC 33.6 g/dL g/dL (32.4-36.7) RDW 13.2 % % (11.5-15.2) Plt Count 336 10^3/uL 10^3/uL (150-400) MPV 9.4 fL fL (8.7-11.7) Neut % (Auto) 42.5 % % (39.3-74.2) Lymph % (Auto) 37.9 % % (15.0-45.0) [place] % (Auto) 8.5 % % (4.5-13.0) Eos % (Auto) 10.0 % H % (0.6-7.6) Baso % (Auto) 1.0 % % (0.3-1.7) Nucleat RBC Rel Count 0.0 % % (0.0-0.2) Absolute Neuts (auto) 3.01 10^3/uL 10^3/uL (1.70-6.50) Absolute Lymphs (auto) 2.68 10^3/uL 10^3/uL (1.00-3.00) Absolute Monos (auto) 0.60 10^3/uL 10^3/uL (0.30-0.80) Absolute Eos (auto) 0.71 10^3/uL H 10^3/uL (0.03-0.40) Absolute Basos (auto) 0.07 10^3/uL 10^3/uL (0.02-0.10) Absolute Nucleated RBC 0.00 10^3/uL 10^3/uL (0-0.01) Immature Gran % 0.1 % % (0.0-1.1) Immature Gran # 0.01 10^3/uL 10^3/uL (0.00-0.10) Sodium 145 mEq/L mEq/L (135-145) Potassium 4.2 mEq/L mEq/L (3.5-5.2) Chloride 102 mEq/L mEq/L (97-110) Carbon Dioxide 31 mEq/l mEq/l (22-31) Anion Gap 12 mEq/L mEq/L (8-16) BUN 12 mg/dL mg/dL (7-23) Creatinine 1.1 mg/dL mg/dL (0.7-1.3) Estimated GFR > 60 Glucose 83 mg/dL mg/dL (70-100) Calcium 10.1 mg/dL mg/dL (8.5-10.4) Urine Color YELLOW Urine Appearance CLEAR Urine pH 5.0 (5.0-7.5) Ur Specific [place] 1.021 (1.002-1.030) Urine Protein NEGATIVE (NEGATIVE) Urine Ketones NEGATIVE (NEGATIVE) Urine Blood NEGATIVE (NEGATIVE) Urine Nitrate NEGATIVE (NEGATIVE) Urine Bilirubin NEGATIVE (NEGATIVE) Urine Urobilinogen 2.0 EU H EU (0.2-1.0) Ur Leukocyte Esterase NEGATIVE (NEGATIVE) Urine Glucose NEGATIVE (NEGATIVE) Medications Given: Discontinued Medications Diphenhydramine HCl (Benadryl Injection) 25 mg IVP EDNOW ONE Stop: 11/30/17 16:12 Last Admin: 11/30/17 16:54 Dose: 25 mg Ketamine HCl (Ketamine) 50 mg NASAL EDNOW ONE Stop: 11/30/17 16:12 Last Admin: 11/30/17 16:55 Dose: 50 mg Metoclopramide HCl (Reglan Injection) 10 mg IVP EDNOW ONE Stop: 11/30/17 16:12 Last Admin: 11/30/17 16:54 Dose: 10 mg Departure - Departure Disposition: Home, Routine, Self-Care Clinical Impression: Testicular pain, left Condition: Good Instructions: Testicle Pain (ED) Additional Instructions: Sometimes we are unable to diagnose an obvious cause of abdominal pain in the Emergency Department. Based upon our evaluation today, we see no obvious explanation for your pain. Because more serious conditions can be difficult to diagnose early in the course of their presentation, we ask that you return to the Emergency Department in 12-24 hours for a recheck if you are still having pain. This is necessary to exclude the development of a more serious condition such as appendicitis or other intra-abdominal emergency. In the event your pain markedly increases before that time or you develop intractable vomiting or fever return to the Emergency Department immediately. You had an adverse reaction to ketamine (dizziness). Referrals: Andree Sales PAC [Primary Care Provider] - 1-2 days without fail Grabiel Lawrence MD [Medical Doctor] - As per Instructions (Call to make an appointment.)
[2017-11-30 16:19] LABS: PLATELET COUNT 336 10^3/uL (150-400)
[2017-11-30 21:23] VITALS: BP 140/99
== END 2017-11-30 21:27 | disposition home or self-care (01) ==
LOC: EDUNIT#
DX: N50.812 Left testicular pain (principal); I10 Essential (primary) hypertension; E11.9 Type 2 diabetes mellitus without complications; F17.200 Nicotine dependence, unspecified, uncomplicated
CPT/HCPCS: 96374; J1200; J2765

== ENCOUNTER 2018-02-15 12:52 | Emergency (ER) | payer MEDICAID ==
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
[2018-02-15] MEDS ORDERED: IOPAMIDOL (ISOVUE-300) 100 ML BTL ONE (14:33)
[2018-02-15] MEDS ORDERED: LIDOCAINE 4%/MENTHOL 1% PATCH TD ONE (16:39)
[2018-02-15 16:54] VITALS: BP 147/85
[2018-02-15] MEDS ORDERED: PATCH REMOVAL 1 EA PATCH TD SCH (21:00)
== END 2018-02-15 16:51 | disposition home or self-care (01) ==
DX: S33.5XXA Sprain of ligaments of lumbar spine, initial encounter (principal); I10 Essential (primary) hypertension; E11.9 Type 2 diabetes mellitus without complications; F17.210 Nicotine dependence, cigarettes, uncomplicated; V13.4XXA Pedal cycle driver injured in collision with car, pick-up truck or van in traffic accident, initial encounter; Y92.410 Unspecified street and highway as the place of occurrence of the external cause; Y99.8 Other external cause status; Y93.55 Activity, bike riding
CPT/HCPCS: Q9967

== ENCOUNTER 2018-09-05 04:26 | Emergency (ER) | payer MEDICAID ==
[2018-09-05] MEDS ORDERED: IBUPROFEN 600 MG TAB PO ONE (04:43)
[2018-09-05] MEDS ORDERED: ACETAMINOPHEN 500 MG TAB PO ONE (05:19)
[2018-09-05] MEDS ORDERED: GABAPENTIN 300 MG CAP PO ONE (05:19)
[2018-09-05] MEDS ORDERED: DIAZEPAM 5 MG TAB PO ONE (05:19)
[2018-09-05] MEDS ORDERED: LIDOCAINE 4%/MENTHOL 1% PATCH TD ONE (05:19)
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
[2018-09-05 07:18] VITALS: BP 118/68
[2018-09-05] MEDS ORDERED: PATCH REMOVAL 1 EA PATCH TD SCH (21:00)
== END 2018-09-05 07:19 | disposition home or self-care (01) ==
LOC: EDUNIT#
DX: M54.9 Dorsalgia, unspecified (principal); I10 Essential (primary) hypertension; Z59.0 Homelessness